=== PATIENT | female | born 1935 | race African-American/Black ===

== ENCOUNTER 2025-08-15 12:35 | Inpatient (IN) | payer MEDICARE, OTHER ==
[~2025-08-15] VITALS: Ht 160 cm; Wt 47.6 kg
[~2025-08-15 12:35] MED LIST: ACET-2708 PO; AMLO-905 PO; APIX5TAB PO; ATOR40TA70 PO; GUAI600T44 MT; HYDR25TA PO; IPRA3AMP31 IH; ONDA4TAB50 PO; PANT40TA51 PO
[2025-08-15 12:41] VITALS: O2SAT 100
[2025-08-15 14:32] LABS: HEMATOCRIT. 22.5 % (36.0-48.0); HEMOGLOBIN. 7.3 g/dL (12.0-16.0); MEAN PLATELET VOLUME 8.5 fl (7.4-10.4); PLATELET 251 x1000/uL (130-400); RED BLOOD CELL COUNT 2.43 mill/uL (4.2-5.4); RED CELL DISTRIBUTION WIDTH 16.1 % (11.6-14.6)
[2025-08-15 14:47] LABS: LYMPHOCYTES % MANUAL 7.0 % (20.0-60.0); MONOCYTES % MANUAL 6.0 % (2.0-8.0); NEUTROPHILS % MANUAL 87.0 % (45.0-75.0); PLATELET ESTIMATE NORMAL
[2025-08-15 14:49] LABS: UREA NITROGEN BLOOD 35 mg/dL (9-23)
[2025-08-15 14:50] LABS: ASPARTATE AMINOTRANSFERASE 66 IU/L (<34)
[2025-08-15 14:51] LABS: BILIRUBIN DIRECT 0.3 mg/dL (<=3.0); BILIRUBIN TOTAL 0.7 mg/dL (0.1-1.0); PROTEIN TOTAL 6.6 g/dL (6.0-8.3)
[2025-08-15 15:00] LABS: CREATININE 2.6 mg/dL (0.6-1.0)
[2025-08-15 15:03] LABS: TROPONIN I HIGH SENSITIVITY 51 ng/L (3.0-34)
[2025-08-15] MEDS ORDERED: METHYLPREDNISOLONE 40MG/ML INJ IV ONE (15:15)
[2025-08-15] MEDS: METHYLPREDNISOLONE SOD SUCC 40MG/ML (ACT-O-VIAL) IV NR (15:32)
[2025-08-15] MEDS: ALBUTEROL (0.083%) 2.5MG/3ML NEB HHN ONE (16:12)
[2025-08-15] MEDS: FUROSEMIDE 40MG/4ML VIAL IVP ONE (17:02)
[2025-08-15] MEDS ORDERED: ONDANSETRON HCL 4MG/2ML INJ IV PRN (20:30)
[2025-08-15] MEDS ORDERED: IPRATROPIUM/ALBUTEROL 0.5-3(2.5)MG/3ML NEB HHN PRN (20:30)
[2025-08-15] MEDS ORDERED: DEXTROSE 50% WATER 50ML SYRINGE IV PRN (20:30)
[2025-08-15] MEDS ORDERED: ACETAMINOPHEN 325MG TABLET PO PRN ×2 (20:30)
[2025-08-15] MEDS ORDERED: HYDROCHLOROTHIAZIDE 25MG TABLET PO SCH (20:30)
[2025-08-15] MEDS ORDERED: DOXYCYCLINE 100MG/100ML 100 ML IV SCH (21:00)
[2025-08-15] MEDS ORDERED: ATORVASTATIN CALCIUM 40MG TABLET PO SCH (21:00)
[2025-08-15 21:28] LABS: BG BASE EXCESS 13.8 mmol/L (-2.0-3.0); BG CARBOXYHEMOGLOBIN 0.9 % (0.5-1.5); BG DEOXYHEMOGLOBIN 3.5 % (0.0-5.0); BG FLOW(L/min) 3.00 L/min; BG FRACTION INSPIRED OXYGEN 32; BG HCO3 ACT 38.5 mmol/L (21.0-28.0); BG METHEMOGLOBIN 0.3 % (0.5-1.5); BG OXYGEN SATURATION 96.5 % (94.0-98.0); BG OXYHEMOGLOBIN 95.3 % (94.0-98.0); BG PCO2 50.5 mmHg (32.0-45.0); BG PH 7.500 (7.350-7.450); BG PO2 89.6 mmHg (83.0-108.0); BG SAMPLE SITE RIGHT BRACHIAL; BG TOTAL HEMOGLOBIN 8.2 g/dL (12.0-16.0); BG VENT MODE NASAL CANNULA
[2025-08-15 23:34] LABS: CREATINE KINASE MB FRACTION < 0.5 ng/mL (0.5-3.6)
[2025-08-15 23:37] LABS: TROPONIN I HIGH SENSITIVITY 56 ng/L (3.0-34)
[2025-08-16] VITALS (7 sets, daily range): BP systolic 106–143; BP diastolic 40–82; PULSE 63–86; RESP 17–22; TEMP 36.3–37.1; O2SAT 95–100
[2025-08-16] MEDS: ENOXAPARIN 60MG/0.6ML SYR SUBCUT SCH (03:15)
[2025-08-16] MEDS ORDERED: MIDO2.5T3 PO (05:00)
[2025-08-16] MEDS ORDERED: ATOR20TA65 PO (05:00)
[2025-08-16] MEDS ORDERED: BUDE6HFA IH (05:00)
[2025-08-16] MEDS ORDERED: FURO20TA4 PO (05:00)
[2025-08-16] MEDS ORDERED: PANT20TA17 PO (05:00)
[2025-08-16] MEDS ORDERED: TIOT4MIS2 IH (05:00)
[2025-08-16] MEDS: BLOOD SUGAR DIAGNOSTIC STRIP TEST SCH (06:32)
[2025-08-16 09:20] LABS: HEMATOCRIT. 21.9 % (36.0-48.0); HEMOGLOBIN. 7.3 g/dL (12.0-16.0); MEAN PLATELET VOLUME 8.5 fl (7.4-10.4); PLATELET 260 x1000/uL (130-400); RED BLOOD CELL COUNT 2.38 mill/uL (4.2-5.4); RED CELL DISTRIBUTION WIDTH 15.9 % (11.6-14.6)
[2025-08-16 09:35] LABS: CREATINE KINASE MB FRACTION < 0.5 ng/mL (0.5-3.6)
[2025-08-16 09:37] LABS: INR 1.2
[2025-08-16 09:40] LABS: TROPONIN I HIGH SENSITIVITY 56 ng/L (3.0-34)
[2025-08-16] MEDS: DOXYCYCLINE 100MG/100ML 100 ML IV SCH (09:59)
[2025-08-16] MEDS: PANTOPRAZOLE SODIUM 40 MG/VIAL IV SCH (09:59)
[2025-08-16] MEDS: AMLODIPINE 10MG TABLET PO SCH (10:02)
[2025-08-16] MEDS ORDERED: AMIO100T4 PO (12:00)
[2025-08-16] MEDS ORDERED: FLUT9.9S16 BOTHNSTRLS (12:16)
[2025-08-16] MEDS ORDERED: MAGN400C MT (12:16)
[2025-08-16] MEDS ORDERED: LUBI8CAP MT (12:16)
[2025-08-16] MEDS ORDERED: DICL100G58 TP (12:16)
[2025-08-16] MEDS ORDERED: BISO10TA28 MT (12:16)
[2025-08-16] MEDS ORDERED: GABA-529 PO (12:16)
[2025-08-16] MEDS: IPRATROPIUM/ALBUTEROL 0.5-3(2.5)MG/3ML NEB HHN SCH (13:04)
[2025-08-16 13:45] LABS: CREATININE 2.5 mg/dL (0.6-1.0); TRIGLYCERIDE 69 mg/dL (0-150); UREA NITROGEN BLOOD 39 mg/dL (9-23)
[2025-08-16 13:46] LABS: LDL CHOLESTEROL 52 mg/dL (5-100)
[2025-08-16 13:47] LABS: ASPARTATE AMINOTRANSFERASE 60 IU/L (<34); BILIRUBIN DIRECT 0.3 mg/dL (<=3.0); BILIRUBIN TOTAL 0.6 mg/dL (0.1-1.0); PROTEIN TOTAL 7.0 g/dL (6.0-8.3)
[2025-08-16 13:49] LABS: T4 FREE 1.42 ng/dL (0.89-1.76)
[2025-08-16 15:32] LABS: LYMPHOCYTES % MANUAL 6.0 % (20.0-60.0); MONOCYTES % MANUAL 5.0 % (2.0-8.0); NEUTROPHILS % MANUAL 89.0 % (45.0-75.0); PLATELET ESTIMATE NORMAL
[2025-08-16 16:44] LABS: INFLUENZA TYPE A Presumptive Negative (Pres. Neg.)
[2025-08-16 16:45] LABS: INFLUENZA TYPE B Presumptive Negative (Pres. Neg.)
[2025-08-16 16:50] LABS: RESPIRATORY SYNCYTIAL VIRUS Not Detected (Not Detectd)
[2025-08-16] MEDS ORDERED: ENOXAPARIN 60MG/0.6ML SYR SUBCUT SCH (22:00)
== END 2025-08-16 19:27 | disposition short-term general hospital (02) | DRG 189 ==
LOC: ER 12:43 → EDBEDREQ 15:13 → CANBEDREQ 16:48 → 5WST 19:53 → ENRESERV 08-16 02:48
PROVIDERS: ADMIT Internal Medicine; ATTEND Internal Medicine
DX: J96.22 Acute and chronic respiratory failure with hypercapnia (principal); J18.9 Pneumonia, unspecified organism; J44.1 Chronic obstructive pulmonary disease with (acute) exacerbation; I5A Non-ischemic myocardial injury (non-traumatic); N17.9 Acute kidney failure, unspecified; I13.0 Hypertensive heart and chronic kidney disease with heart failure and stage 1 through stage 4 chronic kidney disease, or unspecified chronic kidney disease; Z68.1 Body mass index [BMI] 19.9 or less, adult; J44.0 Chronic obstructive pulmonary disease with (acute) lower respiratory infection; N18.9 Chronic kidney disease, unspecified; R62.7 Adult failure to thrive; I48.0 Paroxysmal atrial fibrillation; Z79.01 Long term (current) use of anticoagulants; Z79.51 Long term (current) use of inhaled steroids; Z86.711 Personal history of pulmonary embolism; Z87.891 Personal history of nicotine dependence; Z85.118 Personal history of other malignant neoplasm of bronchus and lung; Z88.0 Allergy status to penicillin; Z99.3 Dependence on wheelchair; Z99.81 Dependence on supplemental oxygen; Z79.899 Other long term (current) drug therapy
CPT/HCPCS: 36415; 36600; 71045; 76770; 80048; 80061; 80076; 82375; 82550; 82553; 82570; 82805; 82962; 83036; 83880; 84134; 84300; 84439; 84443; 84484; 85025; 85379; 87420; 87804; 93005; 93970; 94640; 96372; 96374; 96375; 99285; J1650; J1938; J2470; J2919; J3490